=== PATIENT | male | born 2000 | race Caucasian/White ===

== ENCOUNTER 2022-09-07 20:36 | Emergency (ER) | payer OTHER ==
[2022-09-07] MEDS ORDERED: Bacitracin 1 PK ONE ×2 (21:08→23:04)
[2022-09-07] MEDS ORDERED: Lidocaine 1% (PF) 30 ML VIAL ONE (21:08)
[2022-09-07] MEDS ORDERED: Acetaminophen 500 MG TAB ONE (23:35)
== END 2022-09-07 23:28 | disposition home or self-care (01) ==
LOC: CSHERS 20:36
DX: S61.422A Laceration with foreign body of left hand, initial encounter (principal); S61.421A Laceration with foreign body of right hand, initial encounter; S61.217A Laceration without foreign body of left little finger without damage to nail, initial encounter; W26.8XXA Contact with other sharp object(s), not elsewhere classified, initial encounter
CPT/HCPCS: 12002; 12041; J2001